=== PATIENT | female | born 1980 | race Hispanic/Latino ===

== ENCOUNTER 2023-07-12 14:11 | Emergency (ER) | payer MEDICAID, OTHER ==
[~2023-07-12] VITALS: Ht 160 cm; Wt 86.2 kg
[2023-07-12 16:30] LABS: CREATININE 0.6 mg/dL (0.5-1.0); POTASSIUM 3.4 mmol/L (3.5-5.1)
[2023-07-12 16:34] LABS: ALBUMIN 3.5 g/dL (3.5-5.0); BILIRUBIN,TOTAL 0.8 mg/dL (0.2-1.0); TOTAL PROTEIN, SERUM 7.3 g/dL (6.0-8.3)
[2023-07-12 18:28] LABS: HEMATOCRIT 44.5 % (36-48); MEAN CORPUSCULAR HEMOGLOBIN 29.8 pg (27.0-33.0); MEAN CORPUSCULAR HGB CONC 33.9 g/dL (32.0-36.0); MEAN CORPUSCULAR VOLUME 87.9 fL (79-99); PLATELET COUNT (AUTO) 240 K/uL (130-400); RED BLOOD CELL COUNT(AUTO) 5.06 MIL/uL (4.00-5.50); RED CELL DISTRIBUTION WIDTH 12.6 % (11.0-15.5); WHITE BLOOD COUNT (AUTO) 10.5 K/uL (4.8-10.8)
[2023-07-12] MEDS: 0.9%NACL 1000ML 1,000 ML IV ONE (19:03)
[2023-07-12] MEDS: POTASSIUM CHLORIDE 10MEQ/100ML 100 ML IV ONE (19:04)
[2023-07-12] MEDS: ONDANSETRON 4MG INJ IVP ONE (19:04)
[2023-07-12] MEDS: ONDANSETRON 4MG INJ ONE (19:20)
[2023-07-12] MEDS: MORPHINE 4 MG SYG IVP ONE (19:20)
[2023-07-12 19:39] LABS: BAND NEUTROPHILS % (MANUAL) 1 % (0-2); LYMPHOCYTES % (MANUAL) 18 % (22-44); MONOCYTES % (MANUAL) 8 % (2-9); SEGMENTED NEUTROPHILS % 73 % (40-70); TOTAL CELLS COUNTED 100
[2023-07-12 19:40] LABS: MAN.DIFF COMMENT-IMPRESSION MANUAL DIFFERENTIAL; PLATELET MORPHOLOGY COMMENT ADEQUATE
[2023-07-12 19:41] LABS: WBC MORPHOLOGY CONSISTENT
[2023-07-12] MEDS ORDERED: IOHEXOL-350 75 ML VIAL IV ONE ×2 (20:24→21:25)
[2023-07-12] MEDS: KCL 20 MEQ ERTAB PO ONE ×2 (21:23→21:24)
[2023-07-12 21:30] LABS: APPEARANCE,URINE CLEAR (CLEAR); BILIRUBIN,URINE NEGATIVE (NEGATIVE); COLOR,URINE YELLOW (YELLOW); GLUCOSE, URINE (UA) >=1000 mg/dL (NEGATIVE); HCG,QUALITATIVE URINE NEGATIVE (NEGATIVE); KETONES,URINE 20 mg/dL (NEGATIVE); LEUKOCYTE ESTERASE ,URINE 75 Leu/uL (NEGATIVE); NITRATE,URINE NEGATIVE (NEGATIVE); PH,URINE 5.5 (5.0-8.0); PROTEIN,URINE 20 mg/dL (NEGATIVE); UROBILINOGEN,URINE 0.2 mg/dL (0.2-1.0)
[2023-07-12 21:40] LABS: ADD UA MICROSCOPIC YES
[2023-07-12 21:47] LABS: BACTERIA,URINE RARE /HPF (None Seen); MUCUS,URINE FEW LPF (None Seen); SQUAMOUS EPITHELIAL CELL,UR FEW /HPF (0-2)
[2023-07-12] MEDS ORDERED: ONDA-243 PO (22:22)
[2023-07-12] MEDS ORDERED: CEPH500B PO (22:22)
[2023-07-12] MEDS: CEFTRIAXONE 1G VIAL IVPB ONE (22:50)
[2023-07-12 23:17] VITALS: BP 134/78; PULSE 72; RESP 15; O2SAT 98
== END 2023-07-12 23:19 | disposition home or self-care (01) ==
LOC: EDH 14:11
DX: E86.0 Dehydration (principal); B34.9 Viral infection, unspecified; R11.2 Nausea with vomiting, unspecified; N39.0 Urinary tract infection, site not specified; E11.65 Type 2 diabetes mellitus with hyperglycemia; E87.6 Hypokalemia
CPT/HCPCS: 99285; 74177; 96365; 96375; 71045; 96361; 82550; 84484; 80053; 84703; 83690; 85025; 87088; 81001; 81025; 36415; 93005; J7030; J0696 ×2; J2405; J2270; Q9967

== ENCOUNTER 2023-10-27 21:40 | Inpatient (IN) | payer OTHER ==
[~2023-10-27] VITALS: Ht 160 cm; Wt 84.5 kg
[~2023-10-27 21:40] MED LIST: CEPH500B PO; CLIN-141 PO; KETO10TA2 PO; ONDA-243 PO
[2023-10-27] MEDS: ONDANSETRON 4MG INJ IVP STA (22:48)
[2023-10-27] MEDS: CLINDAMYCIN IVPB 600MG/50ML 50 ML IV STA (22:48)
[2023-10-27] MEDS: morPHINE 2 MG SYG IVP STA (22:48)
[2023-10-27] MEDS: ketOROlac 15MG/ML VIAL (15MG/ML) IV STA (22:48)
[2023-10-27 22:51] LABS: BASOPHILS # (AUTO) 0.05 K/uL (0.00-0.20); BASOPHILS % (AUTO) 0.3 % (0.0-5.0); EOSINOPHILS # (AUTO) 0.11 K/uL (0.00-0.70); EOSINOPHILS % (AUTO) 0.8 % (0.0-8.0); HEMATOCRIT 39.2 % (36-48); IMMATURE GRANULOCYTE ABSOLUTE 0.05 K/uL (0-1); LYMPHOCYTES # (AUTO) 3.1 K/uL (1.0-4.8); LYMPHOCYTES % (AUTO) 21.1 % (21.0-51.0); MEAN CORPUSCULAR HEMOGLOBIN 30.4 pg (27.0-33.0); MEAN CORPUSCULAR HGB CONC 34.4 g/dL (32.0-36.0); MEAN CORPUSCULAR VOLUME 88.3 fL (79-99); MONOCYTES # (AUTO) 1.1 K/uL (0.1-1.0); MONOCYTES % (AUTO) 7.4 % (3.0-13.0); NEUTROPHILS # (AUTO) 10.2 K/uL (1.8-7.7); NEUTROPHILS % (AUTO) 70.1 % (40.0-77.0); PLATELET COUNT (AUTO) 261 K/uL (130-400); RED BLOOD CELL COUNT(AUTO) 4.44 MIL/uL (4.00-5.50); RED CELL DISTRIBUTION WIDTH 11.9 % (11.0-15.5); WHITE BLOOD COUNT (AUTO) 14.6 K/uL (4.8-10.8)
[2023-10-27 23:05] LABS: CREATININE 0.7 mg/dL (0.5-1.0); POTASSIUM 3.7 mmol/L (3.5-5.1)
[2023-10-27] MEDS: 0.9%NACL 1000ML 1,000 ML IV SCH ×2 (23:59)
[2023-10-28] VITALS (7 sets, daily range): BP systolic 101–118; BP diastolic 55–70; PULSE 72–78; RESP 18–20; TEMP 98–98.5; O2SAT 98
[2023-10-28] MEDS: INSULIN humuLIN R 100 UNIT/ML 3ML IV STA (00:02)
[2023-10-28] MEDS ORDERED: IOHEXOL 350 MG/ML 100ML INFUS..BTL IV ONE (00:15)
[2023-10-28] MEDS: LIDOCAINE HCL 1% 20 ML VIAL INJ SCH (01:19)
[2023-10-28] MEDS ORDERED: ONDANSETRON 4MG INJ IVP PRN (02:30)
[2023-10-28] MEDS: LACTATED RINGERS 1000ML 1,000 ML IV SCH (02:31)
[2023-10-28] MEDS: VANCOMYCIN 1G/250ML KIT 250 ML IV SCH ×2 (02:31→16:08)
[2023-10-28] MEDS: ceFEPime HCL 2 GM VIAL IVPB SCH (05:40)
[2023-10-28] MEDS: INSULIN humuLIN R 100 UNIT/ML 3ML SQ SCH (06:55)
[2023-10-28 07:14] LABS: HEMOGLOBIN A1C 12.4 % (4.0-6.0)
[2023-10-28] MEDS ORDERED: VANCOMYCIN PROTOCOL PER PHARMACY IV SCH (15:30)
[2023-10-28] MEDS: ALPRAZolam 0.25 MG TABLET PO PRN (16:07)
[2023-10-28] MEDS: INSULIN GLARgine 100 UNITS/ML 10 ML VIAL SQ SCH (20:58)
[2023-10-29] VITALS (10 sets, daily range): BP systolic 98–146; BP diastolic 59–93; PULSE 66–78; RESP 17–20; TEMP 97.7–98.5; O2SAT 99–100
[2023-10-29 09:21] LABS: BASOPHILS # (AUTO) 0.03 K/uL (0.00-0.20); BASOPHILS % (AUTO) 0.4 % (0.0-5.0); EOSINOPHILS # (AUTO) 0.07 K/uL (0.00-0.70); EOSINOPHILS % (AUTO) 0.8 % (0.0-8.0); HEMATOCRIT 37.9 % (36-48); IMMATURE GRANULOCYTE ABSOLUTE 0.03 K/uL (0-1); LYMPHOCYTES # (AUTO) 2.3 K/uL (1.0-4.8); LYMPHOCYTES % (AUTO) 26.6 % (21.0-51.0); MEAN CORPUSCULAR HEMOGLOBIN 29.5 pg (27.0-33.0); MEAN CORPUSCULAR HGB CONC 33.2 g/dL (32.0-36.0); MEAN CORPUSCULAR VOLUME 88.8 fL (79-99); MONOCYTES # (AUTO) 0.7 K/uL (0.1-1.0); MONOCYTES % (AUTO) 7.9 % (3.0-13.0); NEUTROPHILS # (AUTO) 5.4 K/uL (1.8-7.7); NEUTROPHILS % (AUTO) 63.9 % (40.0-77.0); PLATELET COUNT (AUTO) 239 K/uL (130-400); RED BLOOD CELL COUNT(AUTO) 4.27 MIL/uL (4.00-5.50); WHITE BLOOD COUNT (AUTO) 8.5 K/uL (4.8-10.8)
[2023-10-29 10:52] LABS: CREATININE 0.5 mg/dL (0.5-1.0); POTASSIUM 3.5 mmol/L (3.5-5.1)
[2023-10-29] MEDS: VANCOMYCIN 1.75 GM/250 ML BAG 250 ML IV ONE (16:07)
[2023-10-29] MEDS: acetaMINOPHEN 325 MG TAB PO PRN (20:34)
[2023-10-29] MEDS: VANCOMYCIN 1G/250ML KIT 250 ML IV SCH (23:28)
[2023-10-30] VITALS (27 sets, daily range): BP systolic 100–153; BP diastolic 49–86; PULSE 60–98; RESP 13–19; TEMP 97.5–98.7; O2SAT 100
[2023-10-30 05:20] LABS: HEMATOCRIT 36.4 % (36-48); MEAN CORPUSCULAR HEMOGLOBIN 29.5 pg (27.0-33.0); MEAN CORPUSCULAR HGB CONC 33.5 g/dL (32.0-36.0); MEAN CORPUSCULAR VOLUME 87.9 fL (79-99); RED BLOOD CELL COUNT(AUTO) 4.14 MIL/uL (4.00-5.50); RED CELL DISTRIBUTION WIDTH 11.9 % (11.0-15.5); WHITE BLOOD COUNT (AUTO) 8.5 K/uL (4.8-10.8)
[2023-10-30 05:33] LABS: CREATININE 0.7 mg/dL (0.5-1.0); MAGNESIUM 1.5 mg/dL (1.80-2.40); POTASSIUM 3.5 mmol/L (3.5-5.1)
[2023-10-30] MEDS: INSULIN humuLIN R 100 UNIT/ML 3ML SQ SCH ×3 (05:47→07:30)
[2023-10-30] MEDS: INSULIN GLARgine 100 UNITS/ML 10 ML VIAL SQ SCH (09:10)
[2023-10-30] MEDS: fluCONazole 100 MG TAB PO SCH (12:17)
[2023-10-30] MEDS: 0.9%NACL 1000ML 1,000 ML IV ONE (15:00)
[2023-10-30] MEDS: MAGNESIUM 2GM PREMIX 50ML 50 ML IV STA (15:07)
[2023-10-30] MEDS ORDERED: LIDOCAINE PF 100MG/5ML (2%) SYRINGE 5ML ONE (15:23)
[2023-10-30] MEDS ORDERED: FENTanyl CITRate PF 50 MCG/1 ML 2ML VIAL ONE ×2 (15:24→19:34)
[2023-10-30] MEDS ORDERED: proPOFol 10 MG/ML 20ML VIAL IV ONE (15:24)
[2023-10-30] MEDS ORDERED: MIDAZOLAM HCL 1 MG/ML 2ML VIAL ONE (15:24)
[2023-10-30] MEDS ORDERED: rocuRONium bROMide 10MG/1ML 5ML VL ONE (15:24)
[2023-10-30] MEDS ORDERED: PHENYLEPHRINE HCL 10 MG/ML 1ML VIAL IV ONE (15:26)
[2023-10-30] MEDS ORDERED: GLYCOPYRROLATE 0.2 MG/ML 5 ML VIAL ONE (15:26)
[2023-10-30] MEDS ORDERED: NEOSTIGMINE METHYLSULFATE 1MG/ML IV ONE (15:26)
[2023-10-30] MEDS ORDERED: dexaMETHasone SOD PHOSPHATE 4 MG/ML 1ML VIAL ONE (15:26)
[2023-10-30] MEDS ORDERED: ketOROlac 30MG VIAL (30MG/ML) ONE (15:27)
[2023-10-30] MEDS ORDERED: ONDANSETRON 4MG INJ ONE (15:27)
[2023-10-30] MEDS: VANCOMYCIN 1G/250ML KIT 250 ML IV ONE (17:13)
[2023-10-30] MEDS: MEPERIDINE-PF 25 MG/ML SYG ONE (20:29)
[2023-10-31] VITALS (11 sets, daily range): BP systolic 109–141; BP diastolic 55–97; PULSE 71–87; RESP 16–21; TEMP 97.6–98.3; O2SAT 99
[2023-10-31] MEDS: morPHINE 2 MG SYG IVP PRN (01:10)
[2023-10-31 06:19] LABS: HEMATOCRIT 37.8 % (36-48); MEAN CORPUSCULAR HGB CONC 33.9 g/dL (32.0-36.0); MEAN CORPUSCULAR VOLUME 88.5 fL (79-99); RED BLOOD CELL COUNT(AUTO) 4.27 MIL/uL (4.00-5.50); RED CELL DISTRIBUTION WIDTH 11.9 % (11.0-15.5); WHITE BLOOD COUNT (AUTO) 8.6 K/uL (4.8-10.8)
[2023-10-31 06:35] LABS: CREATININE 0.8 mg/dL (0.5-1.0); POTASSIUM 4.2 mmol/L (3.5-5.1)
[2023-10-31] MEDS: HYDROcodone/acetaMINOPHEN 7.5/325 MG TAB PO PRN (12:24)
[2023-11-01] VITALS: BP 132/80; PULSE 75; RESP 17; TEMP 98
[2023-11-01 04:00] VITALS: BP 102/71; PULSE 66; RESP 17; TEMP 98.2
[2023-11-01] MEDS: INSULIN humuLIN R 100 UNIT/ML 3ML SQ SCH (06:52)
[2023-11-01 07:59] VITALS: BP 107/66; PULSE 67; RESP 16; TEMP 98.2
[2023-11-01] MEDS: INSULIN GLARgine 100 UNITS/ML 10 ML VIAL SQ SCH (08:55)
[2023-11-01 09:00] VITALS: O2SAT 98
[2023-11-01 11:17] VITALS: BP 114/75; PULSE 86; RESP 16; TEMP 98.2
[2023-11-01] MEDS: LACTULOSE 20 GM/30 ML UDCUP PO ONE (13:41)
[2023-11-01 14:16] VITALS: O2SAT 99
[2023-11-01] MEDS ORDERED: INSU10VI3 SQ (16:10)
== END 2023-11-01 16:50 | disposition home or self-care (01) | DRG 603 ==
LOC: EDH 21:40 → EDHIP 10-28 02:12 → 3CH 10-28 03:40
PROVIDERS: ADMIT Hospitalist; ATTEND Hospitalist
PROC: 0J9B0ZZ Drainage of Perineum Subcutaneous Tissue and Fascia, Open Approach (ICD-10-PCS; principal; 2023-10-30 18:55)
DX: L02.215 Cutaneous abscess of perineum (principal); E87.20 Acidosis, unspecified; L02.416 Cutaneous abscess of left lower limb; L02.31 Cutaneous abscess of buttock; L02.214 Cutaneous abscess of groin; I10 Essential (primary) hypertension; E11.65 Type 2 diabetes mellitus with hyperglycemia; E66.9 Obesity, unspecified; D72.829 Elevated white blood cell count, unspecified; L72.3 Sebaceous cyst; Z72.0 Tobacco use; Z79.4 Long term (current) use of insulin; Z91.148 Patient's other noncompliance with medication regimen for other reason; Z91.199 Patient's noncompliance with other medical treatment and regimen due to unspecified reason; Z83.3 Family history of diabetes mellitus
CPT/HCPCS: 36415; 74177; 76882; 80048; 80202; 82948; 83036; 83605; 83735; 84145; 84703; 85025; 85027; 86140; 87040; 87070; 87076; 87205; G0378; J0692; J1100; J1815; J1885; J2001; J2175; J2250; J2270; J2371; J2405; J2704; J2710; J3010; J3370; J3475; J3490; J7030; J7120; Q9967; A4215; A4221; A4222; A4223; A4600

== ENCOUNTER 2023-11-15 12:50 | Emergency (ER) | payer OTHER ==
[~2023-11-15] VITALS: Ht 160 cm; Wt 83.0 kg
[~2023-11-15 12:50] MED LIST changes: -CEPH500B PO; -CLIN-141 PO; +INSU10VI3 SQ; -KETO10TA2 PO; -ONDA-243 PO
[2023-11-15] MEDS: ketOROlac 60 MG VIAL (30MG/ML) IM ONE (14:38)
[2023-11-15] MEDS: HYDROcod/acetaMINOPHEN 7.5/325 MG 15 ML UDCUP PO PRN (14:39)
[2023-11-15 14:47] VITALS: BP 114/67; PULSE 78; RESP 18; TEMP 98.1; O2SAT 99
== END 2023-11-15 15:07 | disposition home or self-care (01) ==
LOC: EDH 12:50
DX: Z48.89 Encounter for other specified surgical aftercare (principal)
CPT/HCPCS: 99283; 96372; J1885

== ENCOUNTER 2024-07-12 23:33 | Emergency (ER) | payer OTHER ==
[~2024-07-12] VITALS: Ht 160 cm; Wt 93.0 kg
[2024-07-13] MEDS ORDERED: ketOROlac 60 MG VIAL (30MG/ML) IM ONE
[2024-07-13 00:05] LABS: RAPID GROUP A STREP negative (NEGATIVE)
[2024-07-13 00:12] LABS: SARS-CoV-2, RNA, NAAT NEGATIVE SARS CoV-2 (NEGATIVE)
[2024-07-13 00:15] LABS: INFLUENZA TYPE A Negative For Type A (NEGATIVE); INFLUENZA TYPE B Negative For Type B (NEGATIVE)
[2024-07-13 00:36] LABS: CREATININE 0.6 mg/dL (0.5-1.0); POTASSIUM 3.8 mmol/L (3.5-5.1)
[2024-07-13 00:45] LABS: BASOPHILS # (AUTO) 0.04 K/uL (0.00-0.20); BASOPHILS % (AUTO) 0.4 % (0.0-5.0); EOSINOPHILS # (AUTO) 0.19 K/uL (0.00-0.70); EOSINOPHILS % (AUTO) 1.9 % (0.0-8.0); IMMATURE GRANULOCYTE ABSOLUTE 0.02 K/uL (0-1); LYMPHOCYTES # (AUTO) 3.2 K/uL (1.0-4.8); LYMPHOCYTES % (AUTO) 32.8 % (21.0-51.0); MEAN CORPUSCULAR HEMOGLOBIN 29.4 pg (27.0-33.0); MEAN CORPUSCULAR HGB CONC 33.7 g/dL (32.0-36.0); MEAN CORPUSCULAR VOLUME 87.2 fL (79-99); MONOCYTES # (AUTO) 0.8 K/uL (0.1-1.0); MONOCYTES % (AUTO) 8.4 % (3.0-13.0); NEUTROPHILS # (AUTO) 5.5 K/uL (1.8-7.7); NEUTROPHILS % (AUTO) 56.3 % (40.0-77.0); PLATELET COUNT (AUTO) 297 K/uL (130-400); RED BLOOD CELL COUNT(AUTO) 4.36 MIL/uL (4.00-5.50); RED CELL DISTRIBUTION WIDTH 12.9 % (11.0-15.5); WHITE BLOOD COUNT (AUTO) 9.8 K/uL (4.8-10.8)
[2024-07-13] MEDS ORDERED: INSULIN humuLIN R 100 UNIT/ML 3ML SQ ONE (01:30)
--- NOTE | 2024-07-13 01:33 | ERN ---
ED Note History of Present Illness Stated Complaint: C/O COUGH,CONGESTION X 2 WKS, CP 3 HRS [employer] Chief Complaint: Cough Time Seen by MD: 23:38 Time Seen by Midlevel: 23:38 Dictation: The patient is a 43-year-old female with a history of diabetes who presents to the emergency department with complaints of chest pain onset5 hours ago. Patient reports pain to be mid center and sharp. Reports pain to be intermediate in nature lasting about 30 seconds. Patient reports she has been dealing with a cough that is dry, headaches for the past two weeks. Denies any fevers. Allergies: Coded Allergies: No Known Drug Allergies (Unverified Allergy, Unknown, 07/12/23) Home Meds Active Scripts Insuln Asp Prt/Insulin Aspart (Novolog Mix 70-30 Vial) 100 Unit/Ml (70-30) Vial, 50 UNITS SQ DAILY, #1 VIAL 1 Refill Prov:ROSANA MELARA AGPCNP 11/01/23 Past Medical History Past Medical History: Anxiety, Diabetes-Type II, Hypertension Surgical History: Surgical History Other: RT FOOT Social History: Lives with family History: Not Applicable LMP: July 12, 2024 RN Note Reviewed/Agreed w/PFSH: Yes Review of System Dictation Constitutional: Negative for fever,chills, and weight loss Eyes: Negative for injury, pain,redness, and discharge ENT: Negative for injury,pain or swelling Cardiovascular: Negative for palpitations, and edema positive for chest pain Respiratory: Negative for shortness of breath, and wheezing, positive for cough Abdomen/GI: Negative for abdominal pain, nausea, vomiting, diarrhea, and constipation Back: Negative for injury and pain : Negative for injury, bleeding and discharge MS/Extremity: Negative for injury and deformity Skin: Negative for rash, and discoloration Neuro: Negative for headache, weakness, numbness, tingling, and seizure Psych: Negative for suicide ideation, homicidal ideation, and hallucinations Initial Vital Sign VS Vital Signs Date Time Temp Pulse Resp B/P (MAP) Pulse Ox O2 Delivery O2 Flow Rate FiO2 07/12/24 23:37 98.2 86 20 153/101 99 Room Air Physical Exam Dictation Vital Signs reviewed General Appearance: Alert, oriented x 3, no acute distress, well developed, nourished. Head and Face: non-traumatic. Eyes: PERRL, pink conjunctivas, eyelid no trauma, anterior chamber with arcus senilis. Ears: Pinnas intact and no signs of trauma or erythema ear canals clear and no discharge TM no erythema Nose: No discharge, no bleeding. Oropharynx: Mouth normal, tongue pink. pharynx clear,no erythema, tonsils no exudates, no abscesses noted, mucous membrane moist Neck: Supple, non-tender, no thyromegaly, no masses, no JVD, no bruits Breast:Deferred Chest:tenderness, no crepitus, no paradoxical movement, no retractions Lungs:Clear, well-ventilated, symmetric, no rales, no wheezing, no rhonchi, no stridor, good breath sounds bilaterally Heart: Regular rate, regular rhythm, no murmur, no gallops Vascular: no peripheral edema, Abdomen: Soft, positive bowel sounds, nondistended, no guarding, nontender, no rebound, no masses no hepatomegaly, no splenomegaly, no Fitzgerald's sign, no hernias. Rectal: Deferred Genital: Deferred Neurological: Normal speech, motor function intact, sensory function intact Musculoskeletal: Neck nontender, full range of motion, back nontender, full range of motion, Extremities: nontender, full range of motion Skin: Color pink, dry, no turgor, no rash, no lacerations, no abrasions, no contusions. Lymphatic: Deferred Results (Laboratory/Radiology) Laboratory/Radiology Laboratory Tests Test 07/12/24 23:41 07/13/24 00:19 Influenza Type A Antigen Negative For Type A Influenza Type B Antigen Negative For Type B SARS-CoV-2, RNA, NAAT NEGATIVE SARS CoV-2 Group A Streptococcus Rapid negative (NEGATIVE) White Blood Count 9.8 K/uL (4.8-10.8) Red Blood Count 4.36 MIL/uL (4.00-5.50) Hemoglobin 12.8 g/dL (12.0-16.0) Hematocrit 38.0 % (36-48) Mean Corpuscular Volume 87.2 fL (79-99) Mean Corpuscular Hemoglobin 29.4 pg (27.0-33.0) Mean Corpuscular Hemoglobin Concent 33.7 g/dL (32.0-36.0) Red Cell Distribution Width 12.9 % (11.0-15.5) Platelet Count 297 K/uL (130-400) Mean Platelet Volume 10.9 fL (7.5-10.5) H Immature Granulocyte % (Auto) 0.2 % (0-1) Neutrophils (%) (Auto) 56.3 % (40.0-77.0) Lymphocytes (%) (Auto) 32.8 % (21.0-51.0) Monocytes (%) (Auto) 8.4 % (3.0-13.0) Eosinophils (%) (Auto) 1.9 % (0.0-8.0) Basophils (%) (Auto) 0.4 % (0.0-5.0) Neutrophils # (Auto) 5.5 K/uL (1.8-7.7) Lymphocytes # (Auto) 3.2 K/uL (1.0-4.8) Monocytes # (Auto) 0.8 K/uL (0.1-1.0) Eosinophils # (Auto) 0.19 K/uL (0.00-0.70) Basophils # (Auto) 0.04 K/uL (0.00-0.20) Absolute Immature Granulocyte (auto 0.02 K/uL (0-1) Nucleated Red Blood Cells 0.0 % (0.0-0.19) Sodium Level 137 mmol/L (136-145) Potassium Level 3.8 mmol/L (3.5-5.1) Chloride Level 102 mmol/L (101-111) Carbon Dioxide Level 27 mmol/L (21-32) Blood Urea Nitrogen 14 mg/dL (7-18) Creatinine 0.6 mg/dL (0.5-1.0) Glomerular Filtration Rate Calc 116 mL/min (>90) Random Glucose 338 mg/dL (70-105) H Total Calcium 8.6 mg/dL (8.5-10.1) Troponin I High Sensitivity < 4 ng/L (4-50) L Serum Test, Qualitative NEGATIVE (NEGATIVE) Labs Reviewed?: Yes EKG: (+) rhythm (Sinus rhythm) EKG Comment: Date:07/12/2024 Time:2335 Ventricular rate:83 UT interval:133 QRS duration:89 QT/QTc:374 EKG interpretation: Sinus rhythm Reviewed by ED Attending no STEMI ED Course ED Course Orders Procedure Category Date Status Time Covid Rna Naat LAB 07/12/24 Complete 23:36 Influenza Type A & B, LAB 07/12/24 Complete Rapid 23:36 Rapid (Group A Strep) LAB 07/12/24 Complete 23:36 12 Lead Ekg Tracing- EKG 07/12/24 Logged Technical 23:36 Troponin I High LAB 07/13/24 Complete Sensitivity 00:00 Cbc With Differential LAB 07/13/24 Complete 00:00 Chest 1vw RAD 07/13/24 Taken 00:00 Basic Metabolic Panel LAB 07/13/24 Complete 00:00 Ketorolac 60mg/2ml PHA 07/13/24 Complete (Toradol 60mg/2ml) 00:00 Testing, LAB 07/13/24 Complete Serum Hcg 00:00 Insulin Regular, PHA 07/13/24 Complete Human 3ml (Humulin R 01:30 Current Medications Medications (Trade) Dose Ordered Sig/Annie Route PRN Reason Start Time Stop Time Status Last Admin Dose Admin Insulin Human Regular (humuLIN R 100 UNIT/ML 3ML) 5 unit ONCE ONCE SQ 07/13/24 01:30 07/13/24 01:31 DC Ketorolac Tromethamine (toRADol 60MG/ 2ML) 60 mg ONCE ONCE IM 07/13/24 00:00 07/13/24 00:06 DC Vital Signs Date Time Temp Pulse Resp B/P (MAP) Pulse Ox O2 Delivery O2 Flow Rate FiO2 07/12/24 23:37 98.2 86 20 153/101 99 Room Air HEART Score Response (Comments) Value History: Low suspicion (0) 0 EKG: Normal 0 Age: < 45yrs (0) 0 Initial Troponin: Normal limit (0) 0 Total 0 Medical Decision Making MDM The patient is a 43-year-old female with a history of diabetes who presents to the emergency department with complaints of chest pain onset5 hours ago. Patient reports pain to be mid center and sharp. Reports pain to be int ermediate in nature lasting about 30 seconds. Patient reports she has been dealing with a cough that is dry, headaches for the past two weeks. Denies any fevers. CBC showed no leukocytosis, no anemia, chemistry showed mild hyperglycemia, negative troponin, serology negative. Chest x-ray showed no acute pathology. Patient at this time refuses her insulin. Reports she took her own insulin just now. Labs and imaging discussed with the patient who agrees to be discharged and follow up with PCP. On physical exam patient is in no acute distress, stable vital signs. Pain is reproducible with palpation. Probably related to the cough. Patient with a low risk heart score. Differential diagnosis: Pneumonia, pneumothorax, upper respiratory infection, ACS, bronchitis, costochondritis Need for hospitalization: Patient does not meet criteria for hospitalization. There are no social concerns with this patient. DX & DISP Disposition: Discharge Departure Impression: Primary Impression: Costochondritis Additional Impression: Uncontrolled diabetes mellitus with hyperglycemia Condition: Stable Additional Instructions: Please follow up with the primary doctor in 1-2 days. If symptoms worsen please return to ER. FOLLOW-UP WITH PRIMARY CARE PROVIDER IN 1 TO 2 DAYS. TAKE MEDICATIONS DIRECTED HERE IN THE EMERGENCY ROOM. OKAY TO CONTINUE HOME MEDICATIONS UNLESS OTHERWISE DISCUSSED DURING YOUR VISIT IN THE EMERGENCY ROOM TODAY. RETURN TO YOUR NEAREST EMERGENCY ROOM IF SYMPTOMS WORSEN OR IF THERE IS NO IMPROVEMENT. CALL 911 IF YOU NEED IMMEDIATE ASSISTANCE. TAKE TYLENOL OR MOTRIN OVER-THE- COUNTER NEEDED AND IF NO CONTRAINDICATIONS ARE PRESENT. INCREASE ORAL HYDRATION. A WOUND CULTURE OR URINE CULTURE WAS ORDERED HERE IN THE EMERGENCY ROOM DEPARTMENT PLEASE FOLLOW-UP WITH PRIMARY CARE PROVIDER AND ADVISE THEM TO GET REPEAT PORTS FROM OUR FACILITY. IF YOU HAD ANY ALCIRA WRAP/SPLINTS THAT WERE APPLIED HERE, PLEASE DO NOT REMOVE THEM UNTIL YOU SEE YOUR PRIMARY CARE OR SPECIALTY. Referrals: SELF,REFERRAL (PCP) Time of Disposition: 02:13 I have reviewed the case, and I agree with, Diagnosis and Plan VANESSA MOSS July 13, 2024 01:32
--- NOTE | 2024-07-13 02:09 | NUR ---
CALLED FOR PT IN LOBBY TO MOVE TO ROOM 20; PT NOT FOUND IN LOBBY.
[2024-07-13 02:29] VITALS: BP 148/92; PULSE 81; RESP 18; TEMP 98; O2SAT 98
--- NOTE | 2024-07-13 06:50 | EKG ---
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
--- NOTE | 2024-07-13 08:28 | HMCIMG ---
CHEST 1VW HISTORY: Chest pain COMPARISON: 07/12/2023 FINDINGS: A frontal projection of the chest was obtained. No acute pulmonary infiltrates is seen. The heart is borderline enlarged. Prominent interstitial markings are seen. No evidence of aortic calcification is seen. IMPRESSION: 1. No acute pulmonary infiltrate is seen.
== END 2024-07-13 02:38 | disposition home or self-care (01) ==
LOC: EDH 23:33
DX: M94.0 Chondrocostal junction syndrome [Tietze] (principal); E11.65 Type 2 diabetes mellitus with hyperglycemia; I10 Essential (primary) hypertension; Z79.4 Long term (current) use of insulin; Z20.822 Contact with and (suspected) exposure to COVID-19
CPT/HCPCS: 36415; 71045; 80048; 84484; 84703; 85025; 87635; 87804; 87880; 93005; 99285

== ENCOUNTER 2024-07-29 23:15 | Emergency (ER) | payer OTHER ==
[~2024-07-29] VITALS: Ht 160 cm; Wt 94.8 kg
--- NOTE | 2024-07-29 23:42 | HMCIMG ---
ANKLE 2VWS LT HISTORY: Injury and pain COMPARISON: None TECHNIQUE: 2 images of the left ankle were obtained. FINDINGS: There is no acute displaced fracture or dislocation. There is soft tissue swelling. Tiny calcaneal spur is seen. Degenerative changes are seen. IMPRESSION: 1. Findings as described above.
[2024-07-30] MEDS ORDERED: ketOROlac 30MG VIAL (30MG/ML) IVP ONE
[2024-07-30] MEDS: HYDROcodone/APAP 5/325 1 TAB TABLET PO ONE (00:05)
[2024-07-30] MEDS: ketOROlac 30MG VIAL (30MG/ML) IM ONE (00:08)
[2024-07-30] MEDS ORDERED: NAPR-1196 PO (00:36)
--- NOTE | 2024-07-30 00:39 | ERN ---
ED Note History of Present Illness Stated Complaint: ANKLE INJURY Chief Complaint: Ankle Problem Time Seen by MD: 23:21 Dictation: Ms. Lindo is a 43-year-old female with history of obesity, diabetes, hypertension, and anxiety who presented to the emergency department this evening for evaluation of ankle pain. She states that four days ago she fell and twisted her left ankle. She states now she has throbbing pain to the foot and ankle with edema. There is no obvious deformity or bruising. She has pain with weight-bearing. She denies additional injury or concerns. Allergies: Coded Allergies: No Known Drug Allergies (Unverified Allergy, Unknown, 07/12/23) Home Meds Active Scripts Insuln Asp Prt/Insulin Aspart (Novolog Mix 70-30 Vial) 100 Unit/Ml (70-30) Vial, 50 UNITS SQ DAILY, #1 VIAL 1 Refill Prov:ROSANA MELARA Beth AGPCEDWIN 11/01/23 Past Medical History Past Medical History: Anxiety, Diabetes-Type II, Hypertension Surgical History: Surgical History Other: RT FOOT PSYCH History: no pertinent psych hx Social History: Lives with family History: Not Applicable RN Note Reviewed/Agreed w/PFSH: Yes Review of System Dictation REVIEW OF SYSTEMS: CONSTITUTIONAL: Patient denies fevers, chills, sweats and weight changes. EYES: Patient denies any visual symptoms. EARS, NOSE, AND THROAT: No difficulties with hearing. No symptoms of rhinitis or sore throat. CARDIOVASCULAR: Patient denies chest pains, palpitations, orthopnea and paroxysmal nocturnal dyspnea. RESPIRATORY: No dyspnea on exertion, no wheezing or cough. GI: No nausea, vomiting, diarrhea, constipation, abdominal pain, hematochezia or melena. : No urinary hesitancy or dribbling. No nocturia or urinary frequency. No abnormal urethral discharge. MUSCULOSKELETAL: Pain to left ankle with swelling. NEUROLOGIC: No chronic headaches, no seizures. Patient denies numbness, tingling or weakness. PSYCHIATRIC: Patient denies problems with mood disturbance. No problems with anxiety. ENDOCRINE: No excessive urination or excessive thirst. DERMATOLOGIC: Patient denies any rashes or skin changes. Initial Vital Sign VS Vital Signs Date Time Temp Pulse Resp B/P (MAP) Pulse Ox O2 Delivery O2 Flow Rate FiO2 07/29/24 23:16 98.4 95 20 145/109 100 Room Air Physical Exam Dictation Vital signs: Reviewed. Afebrile Constitutional: Uncomfortable Head/Face: Normocephalic, atraumatic. Eyes: Periorbital areas with no swelling, redness, or edema. Lids and lashes are normal. Conjunctival injection is absent. Sclera anicteric. Pupils equal, round, reactive to light. ENT: Pinnas intact and no signs of trauma or erythema. Ear canals clear and no discharge. TMs no erythema. No nasal discharge or bleeding noted. Oropharynx with no exudate, redness, swelling, masses, exudates, or evidence of obstruction. Uvula midline. Mucous membranes moist. Neck: Trachea midline, no masses palpated, and no cervical lymphadenopathy. No swelling. Supple, full range of motion. Chest/Axilla: No tenderness, no crepitus, no paradoxical movement, no retractions. Cardiovascular: Regular rate, regular rhythm, no murmur, no gallops. Symmetric pulses. No peripheral edema. Respiratory: Respirations even and unlabored. Lung sounds clear; no wheezes, rales or rhonchi. Gastrointestinal: Inspection is normal. No distention is appreciated. Bowel sounds are normal. No mass or organomegaly . There is no tenderness. No rebound. No rigidity. No voluntary or involuntary guarding. No Fitzgerald's sign. Neurological: Normal speech, gross motor function intact, gross sensory function intact. No focal weakness/Paresthesia. Musculoskeletal/Extremities: Range of motion is intact to the left knee and ankle. She does have pain with movement of the left ankle. There is swelling to the left ankle. No obvious deformity/dislocation. No crepitus. She has good color, warmth, movement, and sensation to the left toes. Capillary refill is brisk. Pedal pulses strong and palpable bilaterally. Integumentary: Intact. Skin is normal color, warm and dry. Cap refill less than 3 seconds. Results (Laboratory/Radiology) X-RAY Comment: PATIENT: WALTER LINDO MR#: [id number] : 1980 SEX: F AGE: 43 LOCATION: ED ORDER [id number] STATUS: PRE ER REPORT#: [id number] SERVICE 27 REASON: INJURY, PAIN ORDERING PHYSICIAN: LEN ALLRED NP PROCEDURE: [id number] - ANKLE 2VWS LT ANKLE 2VWS LT HISTORY: Injury and pain COMPARISON: None TECHNIQUE: 2 images of the left ankle were obtained. FINDINGS: There is no acute displaced fracture or dislocation. There is soft tissue swelling. Tiny calcaneal spur is seen. Degenerative changes are seen. IMPRESSION: 1. Findings as described above. DICTATED BY: IBIS OLIVAS MD DATE: 07/29/242338 ELECTRONICALLY SIGNED BY: IBIS OLIVAS MD DATE: 07/29/24 234 ED Course ED Course Orders Procedure Category Date Status Time Ankle 2vws Lt RAD 07/29/24 Resulted 23:28 Ketorolac PHA 07/30/24 Complete Tromethamine 30mg/Ml 00:00 Crutches NAYELI 07/29/24 In Process 23:48 Hydrocodone/Apap PHA 07/30/24 Complete 5/325 (Baxter 5/325mg) 00:00 Current Medications Medications (Trade) Dose Ordered Sig/Annie Route PRN Reason Start Time Stop Time Status Last Admin Dose Admin Acetaminophen/ Hydrocodone Bitart (NORco 5/325MG) 1 tab ONCE ONCE PO 07/30/24 00:00 07/30/24 00:01 DC 07/30/24 00:05 Ketorolac Tromethamine (toRADol) 30 mg ONCE ONCE IM 07/30/24 00:00 07/30/24 00:01 DC 07/30/24 00:08 Vital Signs Date Time Temp Pulse Resp B/P (MAP) Pulse Ox O2 Delivery O2 Flow Rate FiO2 07/29/24 23:16 98.4 95 20 145/109 100 Room Air Uneventful ED course. Vital signs are stable. X-ray of the left ankle negative for fracture or dislocation. Ice pack was applied as well as Steve wrap. Patient instructed on use of crutches. She received doses Toradol and Baxter and states pain has decreased. Findings were discussed with patient and her family and all questions were answered. Medical Decision Making MDM MDM: Differential diagnosis: ankle fracture, ankle dislocation, sprain/strain, contusion Rationale: Tests considered and ordered secondary to shared decision making incl ude: X-ray Previous outside records reviewed: Old ER visits. Risk of complication and/or morbidity or mortality of patient management: None Medications-Per medication reconciliation Need for hospitalization: Patient does not meet criteria for hospitalization. Need for emergency major/minor surgery: No There are no social concerns with this patient. Prescription drug management: Naproxen Prescriptions will include symptomatic care Patient's prior external medical records from other ER visits were reviewed by me as indicated. Prior testing and results from previous visits were reviewed. Prior tests were taken into account with medical decision making and resource utilization, independent historian/historians were used to obtain complete medical history. I independently interpreted the test that were performed, results were reviewed by me and considered findings on radiology if ordered. Medical management and examination interpretation discussions were had by me with other qualified healthcare professionals as indicated for the patient's care. DX & DISP Disposition: Discharge Departure Impression: Primary Impression: Left ankle sprain Condition: Stable Scripts Naproxen (Naproxen) 250 Mg Tablet 500 MG PO q12 hours as needed for pain, #14 TAB 0 Refills Prov: LEN ALLRED NP 07/30/24 Additional Instructions: Rest: Limit walking and standing. Use crutches. Avoid activities that cause pain or limping ICE: Apply ice packs for 15-20 minutes every 2-3 hours for the 1st 48-72 hours Compression: Use an Steve wrap to reduce swelling. Wrapped snugly but not too tight to avoid cutting off circulation Elevation: Raise your ankle above the level of the heart when sitting or lying down to reduce swelling. Take Tylenol or prescription naproxen as needed for pain/inflammation. Avoid sports or strenuous activity until your ankle feels stable and pain-free. Begin gentle [id number] exercises in a few days. Return to the ER a few have: Severe swelling or pain that worsens. Numbness, tingling, or cold toes. Inability to bear weight after several days. Follow up with your primary care provider in the next 3-5 days. Return to the emergency department for any worsening of symptoms or concerns. Referrals: SELF,REFERRAL (PCP) LEN ALLRED NP Jul 30, 2024 00:39
[2024-07-30 01:31] VITALS: BP 136/73; PULSE 82; RESP 18; TEMP 98.3; O2SAT 98
== END 2024-07-30 01:33 | disposition home or self-care (01) ==
LOC: EDH 23:15
DX: S93.402A Sprain of unspecified ligament of left ankle, initial encounter (principal); E11.9 Type 2 diabetes mellitus without complications; I10 Essential (primary) hypertension; F41.9 Anxiety disorder, unspecified; Z79.4 Long term (current) use of insulin; X50.1XXA Overexertion from prolonged static or awkward postures, initial encounter; Y93.89 Activity, other specified; Y92.89 Other specified places as the place of occurrence of the external cause; Y99.8 Other external cause status
CPT/HCPCS: 99283; 73600; 96372; J1885

== ENCOUNTER 2024-08-04 21:14 | Emergency (ER) | payer OTHER ==
[~2024-08-04] VITALS: Ht 160 cm; Wt 92.1 kg
[~2024-08-04 21:14] MED LIST changes: +NAPR-1196 PO
[2024-08-04 21:44] LABS: BASOPHILS # (AUTO) 0.06 K/uL (0.00-0.20); BASOPHILS % (AUTO) 0.4 % (0.0-5.0); EOSINOPHILS # (AUTO) 0.14 K/uL (0.00-0.70); EOSINOPHILS % (AUTO) 0.9 % (0.0-8.0); HEMATOCRIT 39.2 % (36-48); IMMATURE GRANULOCYTE ABSOLUTE 0.04 K/uL (0-1); LYMPHOCYTES # (AUTO) 3.6 K/uL (1.0-4.8); LYMPHOCYTES % (AUTO) 23.7 % (21.0-51.0); MEAN CORPUSCULAR HEMOGLOBIN 29.5 pg (27.0-33.0); MEAN CORPUSCULAR HGB CONC 34.2 g/dL (32.0-36.0); MEAN CORPUSCULAR VOLUME 86.3 fL (79-99); MONOCYTES % (AUTO) 6.7 % (3.0-13.0); NEUTROPHILS # (AUTO) 10.2 K/uL (1.8-7.7); PLATELET COUNT (AUTO) 280 K/uL (130-400); RED BLOOD CELL COUNT(AUTO) 4.54 MIL/uL (4.00-5.50); RED CELL DISTRIBUTION WIDTH 12.8 % (11.0-15.5)
[2024-08-04 21:52] LABS: CREATININE 0.8 mg/dL (0.5-1.0); POTASSIUM 3.7 mmol/L (3.5-5.1)
[2024-08-04] MEDS: metoCLOPRAmide 10 MG/2 ML VIAL IVP ONE (22:14)
[2024-08-04] MEDS: 0.9%NACL 1000ML 1,000 ML IV ONE (22:14)
[2024-08-04] MEDS: acetaMINOPHEN 500 MG TABLET PO ONE (22:14)
[2024-08-04 22:15] LABS: RAPID GROUP A STREP negative (NEGATIVE)
[2024-08-04 22:26] LABS: COVID19 (SARS ANTIGEN RAPID) PRESUMPTIVE NEGATIVE (NEGATIVE); INFLUENZA TYPE A Negative For Type A (NEGATIVE); INFLUENZA TYPE B Negative For Type B (NEGATIVE)
[2024-08-04 22:36] LABS: HCG,QUALITATIVE URINE NEGATIVE (NEGATIVE)
[2024-08-04 22:37] LABS: APPEARANCE,URINE CLEAR (CLEAR); BILIRUBIN,URINE NEGATIVE (NEGATIVE); GLUCOSE, URINE (UA) >=1000 mg/dL (NEGATIVE); KETONES,URINE NEGATIVE (NEGATIVE); LEUKOCYTE ESTERASE ,URINE NEGATIVE Leu/uL (NEGATIVE); NITRATE,URINE NEGATIVE (NEGATIVE); OCCULT BLOOD,URINE NEGATIVE (NEGATIVE); PROTEIN,URINE NEGATIVE (NEGATIVE); SQUAMOUS EPITHELIAL CELL,UR RARE /HPF (0-2); UROBILINOGEN,URINE 0.2 mg/dL (0.2-1.0)
[2024-08-04 22:41] LABS: COLOR,URINE Light-Yellow (YELLOW)
[2024-08-04] MEDS ORDERED: IOHEXOL-350 75 ML VIAL IV ONE (23:08)
[2024-08-04] MEDS ORDERED: IOHEXOL 350 MG/ML 100ML INFUS..BTL IV ONE (23:08)
--- NOTE | 2024-08-04 23:20 | NUR ---
PATIENT AT CT SCAN AT THIS TIME.
[2024-08-04 23:36] VITALS: BP 122/76; PULSE 78; RESP 18; TEMP 98.6; O2SAT 99
[2024-08-04 23:37] VITALS: TEMP 98.5
--- NOTE | 2024-08-04 23:38 | HMCIMG ---
CT NECK SOFT TISS W/CONTRAST HISTORY: Retropharyngeal abscess COMPARISON: None TECHNIQUE: Multiple sequential axial images of the soft tissue neck were obtained. Patient was given 75 cc of Omnipaque through intravenous route. FINDINGS: No CT evidence of drainable abscess is seen. Visualized portion of brain parenchyma within the posterior fossa is within normal limits. Parapharyngeal fat planes are preserved bilaterally. Parotid glands and submandibular glands are grossly within normal limits. There are normal size cervical lymph nodes. The airway is patent. Visualized portion of the lung apices are unremarkable. IMPRESSION: 1. No CT evidence of drainable abscess is seen CT was performed with one or more following dose reduction techniques: automated exposure control, adjustment of the mA and kv according to patient's size, or use of a iterative reconstruction technique.
[2024-08-05] MEDS ORDERED: AMOX500T2 PO (00:02)
--- NOTE | 2024-08-05 00:02 | ERN ---
General Chief Complaint: Sore Throat Stated Complaint: C/O SORE THROAT, COUGH, HEADACHE, DIZZINESS, BODYA Time Seen by MD: 21:16 Time Seen by Midlevel: 21:16 Source: patient History of Present Illness Initial Comments 43-year-old female who presents to the emergency department due to flu-like symptoms onset yesterday. Patient reports headache, chest pain with deep breathing, sore throat, body aches, nausea but denies any abdominal pain, vomiting or further associated symptoms. PMHx DM, anxiety Allergies: Coded Allergies: No Known Drug Allergies (Unverified Allergy, Unknown, 07/12/23) Home Meds Active Scripts Amoxicillin (Amoxicillin) 500 Mg Tablet, 1 TAB PO BID for 10 Days, #20 TAB 0 Refills Prov:ANDREY WELDON 08/05/24 Naproxen (Naproxen) 250 Mg Tablet, 500 MG PO q12 hours as needed for pain, #14 TAB 0 Refills Prov:LEN ALLRED NP 07/30/24 Insuln Asp Prt/Insulin Aspart (Novolog Mix 70-30 Vial) 100 Unit/Ml (70-30) Vial, 50 UNITS SQ DAILY, #1 VIAL 1 Refill Prov:ROSANA MELARA AGPCEDWIN 11/01/23 Past Medical History Past Medical History: Anxiety, Diabetes-Type II Past Surgical History: Surgical History Other: RT FOOT Social History Social History: Lives with family Female( History) History: Not Applicable LMP: Aug 13, 2024 ROS Dictation Constitutional: Positive for body aches Negative for fever,chills, and weight loss Eyes: Negative for injury, pain,redness, and discharge ENT: Positive sore throat Negative for injury,pain or swelling Cardiovascular: Negative for chest pain, palpitations, and edema Respiratory: Negative for shortness of breath, cough, and wheezing, Abdomen/GI: Positive nausea Negative for abdominal pain, nausea, vomiting, diarrhea, and constipation Back: Negative for injury and pain : Negative for painful urination, bleeding or discharge MS/Extremity: Negative for injury and deformity Skin: Negative for rash, and discoloration Neuro: Positive headache Negative for weakness, numbness, tingling, and seizure Psych: Negative for suicide ideation, homicidal ideation, and hallucinations Physical Exam Physical Exam Dictation General: awake, alert, no acute distress Head/Face: Normocephalic, atraumatic Eyes: PERRL, EOMI, normal conjunctiva, bilateral tonsillar erythema mild swelling. ENT: oral cavity clear, TMs clear, oral mucosa moist Neck: Supple, normal range of motion, submandibular lymphadenopathy Cardiovascular: RRR, normal S1/S2 Respiratory: CTAB, no respiratory distress, no rales or wheezes Abdomen: Soft, non-tender, non-distended, no guarding or rebound. Skin: Warm, dry, normal turgor, no rash MS/Extremity: Pulses equal, no cyanosis, neurovascular intact, FROM Neuro: COAx4, GCS 15, strength 5/5, CN 2-12 intact, normal cerebellar exam, normal gait Psych: Normal behavior, mood, and affect normal Results Laboratory and Microbiology Lab and Micro Result Laboratory Tests Test 08/04/24 21:38 08/04/24 21:47 08/04/24 22:06 White Blood Count 15.0 K/uL (4.8-10.8) H Red Blood Count 4.54 MIL/uL (4.00-5.50) Hemoglobin 13.4 g/dL (12.0-16.0) Hematocrit 39.2 % (36-48) Mean Corpuscular Volume 86.3 fL (79-99) Mean Corpuscular Hemoglobin 29.5 pg (27.0-33.0) Mean Corpuscular Hemoglobin Concent 34.2 g/dL (32.0-36.0) Red Cell Distribution Width 12.8 % (11.0-15.5) Platelet Count 280 K/uL (130-400) Mean Platelet Volume 10.8 fL (7.5-10.5) H Immature Granulocyte % (Auto) 0.3 % (0-1) Neutrophils (%) (Auto) 68.0 % (40.0-77.0) Lymphocytes (%) (Auto) 23.7 % (21.0-51.0) Monocytes (%) (Auto) 6.7 % (3.0-13.0) Eosinophils (%) (Auto) 0.9 % (0.0-8.0) Basophils (%) (Auto) 0.4 % (0.0-5.0) Neutrophils # (Auto) 10.2 K/uL (1.8-7.7) H Lymphocytes # (Auto) 3.6 K/uL (1.0-4.8) Monocytes # (Auto) 1.0 K/uL (0.1-1.0) Eosinophils # (Auto) 0.14 K/uL (0.00-0.70) Basophils # (Auto) 0.06 K/uL (0.00-0.20) Absolute Immature Granulocyte (auto 0.04 K/uL (0-1) Nucleated Red Blood Cells 0.0 % (0.0-0.19) Sodium Level 133 mmol/L (136-145) L Potassium Level 3.7 mmol/L (3.5-5.1) Chloride Level 99 mmol/L (101-111) L Carbon Dioxide Level 25 mmol/L (21-32) Blood Urea Nitrogen 12 mg/dL (7-18) Creatinine 0.8 mg/dL (0.5-1.0) Glomerular Filtration Rate Calc 95 mL/min (>90) Random Glucose 382 mg/dL (70-105) H Total Calcium 8.8 mg/dL (8.5-10.1) Troponin I High Sensitivity 4 ng/L (4-50) Influenza Type A Antigen Negative For Type A Influenza Type B Antigen Negative For Type B SARS-CoV-2 Antigen (Rapid) PRESUMPTIVE NEGATIVE Group A Streptococcus Rapid negative (NEGATIVE) Urine Color Light-Yellow (YELLOW) Urine Appearance CLEAR (CLEAR) Urine pH 6.0 (5.0-8.0) Urine Specific [place] 1.035 (1.001-1.031) Urine Protein NEGATIVE mg/dL (NEGATIVE) Urine Glucose (UA) >=1000 mg/dL (NEGATIVE) H Urine Ketones NEGATIVE mg/dL (NEGATIVE) Urine Occult Blood NEGATIVE (NEGATIVE) Urine Nitrate NEGATIVE (NEGATIVE) Urine Bilirubin NEGATIVE mg/dL (NEGATIVE) Urine Urobilinogen 0.2 mg/dL (0.2-1.0) Urine Leukocyte Esterase NEGATIVE Domi/uL Urine RBC 2-5 /HPF (0-1) H Urine WBC 2-5 /HPF (0-1) H Urine Squamous Epithelial Cells RARE /HPF (0-2) Urine Bacteria None /HPF (None Seen) Urine HCG, Qualitative NEGATIVE (NEGATIVE) Labs Reviewed?: Yes EKG/XRAY/US/CT/MRI EKG Comment Date: 08/04/2024 Time: 03/07/2044 Rate: 86 EKG interpretation: Sinus rhythm, no STEMI, normal EKG Reviewed by ED Attending CT Scan Comment REASON: R/O retropharyngeal abscess ORDERING PHYSICIAN: ANDREY WELDON PROCEDURE: NKSOFTI W - CT NECK SOFT TISS W/CONTRAST CT NECK SOFT TISS W/CONTRAST HISTORY: Retropharyngeal abscess COMPARISON: None TECHNIQUE: Multiple sequential axial images of the soft tissue neck were obtained. Patient was given 75 cc of Omnipaque through intravenous route. FINDINGS: No CT evidence of drainable abscess is seen. Visualized portion of brain parenchyma within the posterior fossa is within normal limits. Parapharyngeal fat planes are preserved bilaterally. Parotid glands and submandibular glands are grossly within normal limits. There are normal size cervical lymph nodes. The airway is patent. Visualized portion of the lung apices are unremarkable. IMPRESSION: 1. No CT evidence of drainable abscess is seen CT was performed with one or more following dose reduction techniques: automated exposure control, adjustment of the mA and kv according to patient's size, or use of a iterative reconstruction technique. DICTATED BY: IBIS OLIVAS MD DATE: 08/04/242330 MDM MDM: Differential diagnosis: Viral illness, strep, influenza, COVID Rationale: 43-year-old female who presents to the emergency department due to flu-like symptoms onset yesterday. Patient reports headache, sore throat, body aches but denies any abdominal pain, vomiting or further associated symptoms. PMHx DM, anxiety Labs obtained show leukocytosis of 15, hyponatremia 133, hypochloremia 99, glucose 382. Patient stated she was due for her insulin tonight and requested to take her home insulin. CT neck obtained negative for retropharyngeal abscess. Negative COVID, flu, strep. Negative troponin, normal EKG. UA negative for urinary tract infection. Patient received IV fluids, acetaminophen, ketorolac, Reglan in the ED. patient was educated on findings and diagnosis. Advised to follow up with PCP. Return to the emergency department if any worsening symptoms. Patient verbalized understanding. Patient stable for discharge. There are no social concerns with this patient. I independently interpreted the test that were performed, results were reviewed by me and considered findings on radiology if ordered. Medical management and examination interpretation discussions were had by me with other qualified healthcare professionals as indicated for the patient's care. ED Course Orders Procedure Category Date Status Time Cbc With Differential LAB 08/04/24 Complete 21:29 Basic Metabolic Panel LAB 08/04/24 Complete 21:29 Troponin I High LAB 08/04/24 Complete Sensitivity 21:29 12 Lead Ekg Tracing- EKG 08/04/24 Logged Technical 21:29 Chest 1vw RAD 08/04/24 Taken 21:29 Covid19 (Sars Antigen LAB 08/04/24 Complete Rapid) 21:29 Influenza Type A & B, LAB 08/04/24 Complete Rapid 21:29 Rapid (Group A Strep) LAB 08/04/24 Complete 21:29 0.9%Nacl 1000ml (Ns PHA 08/04/24 Complete 1000ml) 21:30 Urinalysis LAB 08/04/24 Complete W/Microscopic 21:29 Metoclopramide 10 PHA 08/04/24 Complete Mg/2 Ml Vial (Reglan 1 21:30 Acetaminophen 500mg PHA 08/04/24 Complete Tab (Tylenol 500mg T 21:30 ,Urine Test LAB 08/04/24 Complete 21:[address] Soft Tiss CT 08/04/24 Resulted W/Contrast 22:35 Iohexol (Omnipaque) PHA 08/04/24 Complete 23:08 Iohexol (Omnipaque) PHA 08/04/24 Complete 23:08 Ketorolac PHA 08/05/24 Complete Tromethamine 15mg/Ml 00:00 Current Medications Medications (Trade) Dose Ordered Sig/Annie Route PRN Reason Start Time Stop Time Status Last Admin Dose Admin Acetaminophen (TYLenol 500MG TAB) 1,000 mg ONCE ONCE PO 08/04/24 21:30 08/04/24 21:34 DC 08/04/24 22:14 Iohexol (Omnipaque) 75 ml STK-MED ONCE IV 08/04/24 23:08 08/04/24 23:09 DC Iohexol (Omnipaque) 35,000 mg STK-MED ONCE IV 08/04/24 23:08 08/04/24 23:08 DC Ketorolac Tromethamine (toRADol) 15 mg ONCE ONCE IV 08/05/24 00:00 08/05/24 00:01 DC 08/05/24 00:11 Metoclopramide HCl (regLAN 10MG IV) 10 mg ONCE ONCE IVP 08/04/24 21:30 08/04/24 21:34 DC 08/04/24 22:14 Sodium Chloride 1,000 ml @ 0 mls/hr ONCE ONCE IV 08/04/24 21:30 08/04/24 21:34 DC 08/04/24 22:14 Vital Signs Date Time Temp Pulse Resp B/P (MAP) Pulse Ox O2 Delivery O2 Flow Rate FiO2 08/04/24 23:36 98.6 78 18 122/76 99 Room Air* 0 21 08/04/24 22:27 80 18 133/79 98 Room Air* 0 21 08/04/24 21:17 99.1 89 20 128/84 98 Room Air DX & DISP Disposition: Discharge Departure Impression: Primary Impression: Pharyngitis Condition: Stable Scripts Amoxicillin (Amoxicillin) 500 Mg Tablet 1 TAB PO BID for 10 Days, #20 TAB 0 Refills Prov: ANDREY WELDON 08/05/24 Additional Instructions: Discharge home. Rest. Follow up with primary care in 24 hours. Return to the ER for any acute changes or worsening symptoms. If any medications were prescribed take as directed. Okay to continue home medications unless otherwise discussed during your visit in the emergency room today. Patient was also advised to follow-up with primary care physician in 1 to 2 days for continued monitoring. Referrals: SELF,REFERRAL (PCP) I performed the substantive portion of the visit. I have reviewed and person ally made and approve the management plan that is documented in the notes by myself or the JONATHAN. I acknowledge full responsibility for the patient's management plan. ANDREY WELDON Aug 05, 2024 00:02
[2024-08-05] MEDS: ketOROlac 15MG/ML VIAL (15MG/ML) IV ONE (00:11)
--- NOTE | 2024-08-05 08:52 | EKG ---
[facility] Test Date: 2024-08-04 Test Time: 21:45:42 Pat Name: WALTER RANDOLPH Department: ED Room: Gender: F Hide Spreader: [id number] : 1980 Requested By: ANDREY WELDON Order Number: [id number] Reading MD: Niecy Clemons Measurements Intervals [place] Rate: 86 P: 28 AL: 119 QRS: 40 QRSD: 94 T: 34 QT: 369 QTc: 442 Interpretive Statements Sinus rhythm Compared to ECG 07/12/2024 23:36:38 No significant changes Electronically Signed On 08-06-2024 13:20:34 CDT by Niecy Clemons Please click the below link to view image of tracing.
--- NOTE | 2024-08-05 10:35 | HMCIMG ---
CHEST 1VW HISTORY: Pain COMPARISON: 07/13/2024 FINDINGS: A frontal projection of the chest was obtained. No acute pulmonary infiltrates is seen. The heart is normal in size. Degenerative changes are seen. Prominent interstitial markings are seen. No evidence of aortic calcification is seen. IMPRESSION: 1. No acute pulmonary infiltrate is seen.
== END 2024-08-05 00:29 | disposition home or self-care (01) ==
LOC: EDH 21:14
DX: J02.9 Acute pharyngitis, unspecified (principal); E11.9 Type 2 diabetes mellitus without complications; F41.9 Anxiety disorder, unspecified; Z98.890 Other specified postprocedural states; Z79.4 Long term (current) use of insulin; Z20.822 Contact with and (suspected) exposure to COVID-19
CPT/HCPCS: 99285; 96374; 70491; 71045; 96361; 96375; 87426; 84484; 80048; 85025; 87880; 87804 ×2; 81001; 81025; 36415; 93005; J1885; J7030; J2765; Q9967

== ENCOUNTER 2024-10-02 21:58 | Emergency (ER) | payer OTHER ==
[~2024-10-02] VITALS: Ht 160 cm; Wt 94.8 kg
[~2024-10-02 21:58] MED LIST changes: +AMOX500T2 PO
--- NOTE | 2024-10-02 22:02 | NUR ---
UA CUP PROVIDED
--- NOTE | 2024-10-02 23:13 | NUR ---
UA COLLECTED AND SENT
[2024-10-02 23:25] LABS: HCG,QUALITATIVE URINE NEGATIVE (NEGATIVE)
[2024-10-02 23:28] LABS: APPEARANCE,URINE CLEAR (CLEAR); GLUCOSE, URINE (UA) >=1000 mg/dL (NEGATIVE); LEUKOCYTE ESTERASE ,URINE NEGATIVE Leu/uL (NEGATIVE); NITRATE,URINE NEGATIVE (NEGATIVE); OCCULT BLOOD,URINE NEGATIVE (NEGATIVE)
[2024-10-02 23:29] LABS: ADD UA MICROSCOPIC YES
[2024-10-02 23:30] LABS: SQUAMOUS EPITHELIAL CELL,UR RARE /HPF (0-2)
[2024-10-02 23:35] LABS: IMMATURE GRANULOCYTE ABSOLUTE 0.03 K/uL (0-1); NUCLEATED RED BLOOD CELLS 0.0 % (0.0-0.19); PLATELET COUNT (AUTO) 266 K/uL (130-400); RED BLOOD CELL COUNT(AUTO) 4.38 MIL/uL (4.00-5.50); RED CELL DISTRIBUTION WIDTH 12.6 % (11.0-15.5); WHITE BLOOD COUNT (AUTO) 10.3 K/uL (4.8-10.8)
[2024-10-02 23:51] LABS: CREATININE 0.5 mg/dL (0.5-1.0); GLOMERULAR FILTR. RATE CALC 120.0 mL/min (>90); GLUCOSE,RANDOM 247.0 mg/dL (70-105); SODIUM SERUM 135.0 mmol/L (136-145); UREA NITROGEN, BLOOD 10.0 mg/dL (7-18)
--- NOTE | 2024-10-03 00:27 | NUR ---
PATIENT CARE ASSUMED AT THIS TIME.
--- NOTE | 2024-10-03 00:52 | ERN ---
General Chief Complaint: Multiple Complaints Stated Complaint: HEADACHE, DIZZY, LEG PAIN, BACK PAIN Time Seen by MD: 22:26 Time Seen by Midlevel: 22:26 Source: patient History of Present Illness Initial Comments Patient is a 44-year-old female with a past medical history of anxiety presenting to the emergency department for evaluation of generalized body w eakness and generalized body aches. She reports getting an HPV vaccine a proximally two weeks ago and since then her symptoms has been intermittent in nature. Over the last couple of days she has been under a lot of stress in several of her family members have been diagnosed with cancer. Many of her family members had similar symptoms so she wanted to report to the ER for furthe r evaluation. Allergies: Coded Allergies: No Known Drug Allergies (Unverified Allergy, Unknown, 07/12/23) Home Meds Active Scripts Amoxicillin (Amoxicillin) 500 Mg Tablet, 1 TAB PO BID for 10 Days, #20 TAB 0 Refills Prov:ANDREY WELDON 08/05/24 Naproxen (Naproxen) 250 Mg Tablet, 500 MG PO q12 hours as needed for pain, #14 TAB 0 Refills Prov:LEN ALLRED NP 07/30/24 Insuln Asp Prt/Insulin Aspart (Novolog Mix 70-30 Vial) 100 Unit/Ml (70-30) Vial, 50 UNITS SQ DAILY, #1 VIAL 1 Refill Prov:ROSANA MELARA 11/01/23 Past Medical History Past Medical History: Anxiety, Diabetes-Type II Past Surgical History: Surgical History Other: RT FOOT Social History Social History: Lives with family Female( History) History: Not Applicable LMP: Sep 08, 2024 ROS Dictation CONSTITUTIONAL: Negative except for HPI HEAD/FACE: Negative except for HPI EENT: Negative except for HPI RESPIRATORY: Negative except for HPI GASTROINTESTINAL/ABDOMINAL: Negative except for HPI GENITOURINARY: Negative except for HPI MUSCULOSKELETAL: Negative except for HPI INTEGUMENTARY: Negative except for HPI NEUROLOGICAL/PSYCH: Negative except for HPI HEMATOLOGIC/LYMPHATIC: Negative except for HPI All Systems Negative, Except as noted above. 13 point review of systems assessed and all negative except for above. Physical Exam Physical Exam Dictation Vital Signs reviewed General Appearance: Alert, oriented x 3, no acute distress, well developed, nourished. Head and Face: non-traumatic. Eyes: PERRL, pink conjunctivas, eyelid no trauma, anterior chamber with arcus senilis. Ears: Pinnas intact and no signs of trauma or erythema ear canals clear and no discharge TM no erythema Nose: No discharge, no bleeding. Oropharynx: Mouth normal, tongue pink, pharynx clear,no erythema, tonsils no exudates, no abscesses noted, mucous membrane moist Neck: Supple, non-tender, no thyromegaly, no masses, no JVD, no bruits Breast:Deferred Chest:No tenderness, no crepitus, no paradoxical movement, no retractions Lungs:Clear, well-ventilated, symmetric, no rales, no wheezing, no rhonchi, no stridor, good breath sounds bilaterally Heart: Regular rate, regular rhythm, no murmur, no gallops Vascular: no peripheral edema, Abdomen: Soft, positive bowel sounds, nondistended, no guarding, nontender, no rebound, no masses no hepatomegaly, no splenomegaly, no Fitzgerald's sign, no hernias. Rectal: Deferred Genital: Deferred Neurological: Normal speech, motor function intact, sensory function intact Musculoskeletal: Neck nontender, full range of motion, back nontender, full range of motion, Extremities: nontender, full range of motion Skin: Color pink, dry, no turgor, no rash, no lacerations, no abrasions, no contusions. Lymphatic: Deferred Results Laboratory and Microbiology Lab and Micro Result Laboratory Tests Test 10/02/24 23:13 10/02/24 23:22 Urine Color LIGHT-YELLOW (YELLOW) Urine Appearance CLEAR (CLEAR) Urine pH 6.5 (5.0-8.0) Urine Specific [place] 1.032 (1.001-1.031) Urine Protein NEGATIVE mg/dL (NEGATIVE) Urine Glucose (UA) >=1000 mg/dL (NEGATIVE) H Urine Ketones NEGATIVE mg/dL (NEGATIVE) Urine Occult Blood NEGATIVE (NEGATIVE) Urine Nitrate NEGATIVE (NEGATIVE) Urine Bilirubin NEGATIVE mg/dL (NEGATIVE) Urine Urobilinogen 0.2 mg/dL (0.2-1.0) Urine Leukocyte Esterase NEGATIVE Domi/uL Urine RBC 2-5 /HPF (0-1) H Urine WBC 6-10 /HPF (0-1) H Urine Squamous Epithelial Cells RARE /HPF (0-2) Urine Bacteria RARE /HPF (None Seen) Urine HCG, Qualitative NEGATIVE (NEGATIVE) White Blood Count 10.3 K/uL (4.8-10.8) Red Blood Count 4.38 MIL/uL (4.00-5.50) Hemoglobin 12.9 g/dL (12.0-16.0) Hematocrit 38.3 % (36-48) Mean Corpuscular Volume 87.4 fL (79-99) Mean Corpuscular Hemoglobin 29.5 pg (27.0-33.0) Mean Corpuscular Hemoglobin Concent 33.7 g/dL (32.0-36.0) Red Cell Distribution Width 12.6 % (11.0-15.5) Platelet Count 266 K/uL (130-400) Mean Platelet Volume 10.4 fL (7.5-10.5) Immature Granulocyte % (Auto) 0.3 % (0-1) Neutrophils (%) (Auto) 49.8 % (40.0-77.0) Lymphocytes (%) (Auto) 38.9 % (21.0-51.0) Monocytes (%) (Auto) 8.7 % (3.0-13.0) Eosinophils (%) (Auto) 1.7 % (0.0-8.0) Basophils (%) (Auto) 0.6 % (0.0-5.0) Neutrophils # (Auto) 5.1 K/uL (1.8-7.7) Lymphocytes # (Auto) 4.0 K/uL (1.0-4.8) Monocytes # (Auto) 0.9 K/uL (0.1-1.0) Eosinophils # (Auto) 0.18 K/uL (0.00-0.70) Basophils # (Auto) 0.06 K/uL (0.00-0.20) Absolute Immature Granulocyte (auto 0.03 K/uL (0-1) Nucleated Red Blood Cells 0.0 % (0.0-0.19) Sodium Level 135 mmol/L (136-145) L Potassium Level 3.7 mmol/L (3.5-5.1) Chloride Level 100 mmol/L (101-111) L Carbon Dioxide Level 27 mmol/L (21-32) Blood Urea Nitrogen 10 mg/dL (7-18) Creatinine 0.5 mg/dL (0.5-1.0) Glomerular Filtration Rate Calc 120 mL/min (>90) Random Glucose 247 mg/dL (70-105) H Total Calcium 8.5 mg/dL (8.5-10.1) Total Creatine Kinase 47 U/L (21-232) # Labs Reviewed?: Yes MDM MDM: Differential diagnosis: Rhabdomyolysis, dehydration, electrolyte abnormality There are no social concerns with this patient. Prescription drug management Prescriptions will include: None Medical management and examination interpretation discussions were had by me with other qualified healthcare professionals as indicated for the patient's care. ED Course Orders Procedure Category Date Status Time ,Urine Test LAB 10/02/24 Complete 22:03 Urinalysis Profile LAB 10/02/24 Complete 22: Cbc With Differential LAB 10/02/24 Complete : Basic Metabolic Panel LAB 10/02/24 Complete : Culture Urine LATESHA 10/02/24 In Process 23:31 Creatine Kinase, Total LAB 10/03/24 Complete 00:31 Morphine 4mg Syg PHA 10/03/24 Complete (Morphine 4mg Syg) 01:00 Current Medications Medications (Trade) Dose Ordered Sig/Annie Route PRN Reason Start Time Stop Time Status Last Admin Dose Admin Morphine Sulfate (morPHINE 4MG SYG) 4 mg ONCE ONCE IM 10/03/24 01:00 10/03/24 01:01 DC 10/03/24 00:40 Vital Signs Date Time Temp Pulse Resp B/P (MAP) Pulse Ox O2 Delivery O2 Flow Rate FiO2 10/03/24 01:26 98.8 78 16 140/79 100 Room Air* 0 21 10/03/24 00:27 98.8 74 16 149/82 99 Room Air* 0 21 10/02/24 22:00 98.2 83 16 158/87 100 Room Air DX & DISP Disposition: Discharge Departure Impression: Primary Impression: Uncontrolled diabetes mellitus with hyperglycemia Additional Impression: Generalized muscle ache Condition: Stable Additional Instructions: Your blood work today shows an elevated blood sugar. The remainder of your blood work is stable. Please follow up with your primary care doctor in 2-3 days for repeat evaluation. Referrals: NONE (PCP) Time of Disposition: 01:50 I have reviewed the case, and I agree with, Diagnosis and Plan I performed the substantive portion of the visit. I have reviewed and personally made and approve the management plan that is documented in the note by myself or the JONATHAN. I acknowledge for responsibility for the patient's management plan. ERIN MARTIN Oct 03, 2024 00:52
[2024-10-03 02:23] VITALS: BP 111/62; PULSE 74; RESP 16; TEMP 98.8; O2SAT 100
== END 2024-10-03 02:42 | disposition home or self-care (01) ==
LOC: EDH 21:58
DX: E11.65 Type 2 diabetes mellitus with hyperglycemia (principal); M79.10 Myalgia, unspecified site; Z79.4 Long term (current) use of insulin; Z79.899 Other long term (current) drug therapy
CPT/HCPCS: 99283; 82550; 80048; 85025; 87086 ×3; 87186 ×2; 81001; 81025; 36415; 96372; J2270

== ENCOUNTER 2025-02-05 18:38 | Emergency (ER) | payer OTHER ==
[~2025-02-05] VITALS: Ht 160 cm; Wt 94.0 kg
[2025-02-05 18:42] VITALS: BP 129/83; PULSE 98; RESP 16; TEMP 98.1
--- NOTE | 2025-02-05 19:41 | EKG ---
[facility] Test Date: 2025-02-05 Test Time: 19:32:47 Pat Name: WALTER RANDOLPH Department: [facility] Room: Gender: F Portrait Photographer: [id number] : 1980 Requested By: VANESSA MOSS Order Number: [id number] Reading MD: Prosper Sherman Measurements Intervals [place] Rate: 98 P: 71 CA: 130 QRS: 47 QRSD: 90 T: 65 QT: 349 QTc: 446 Interpretive Statements Sinus rhythm Compared to ECG 08/04/2024 21:45:42 No significant changes Electronically Signed On 02-05-2025 21:54:44 RECYCLE DRIVER by Prosper Sherman Please click the below link to view image of tracing.
[2025-02-05 19:50] LABS: IMMATURE GRANULOCYTE ABSOLUTE 0.03 K/uL (0-1); NUCLEATED RED BLOOD CELLS 0.0 % (0.0-0.19); PLATELET COUNT (AUTO) 263 K/uL (130-400); RED BLOOD CELL COUNT(AUTO) 5.13 MIL/uL (4.00-5.50); RED CELL DISTRIBUTION WIDTH 11.9 % (11.0-15.5); WHITE BLOOD COUNT (AUTO) 9.8 K/uL (4.8-10.8)
[2025-02-05 19:54] LABS: APPEARANCE,URINE CLEAR (CLEAR); GLUCOSE, URINE (UA) >=1000 mg/dL (NEGATIVE); LEUKOCYTE ESTERASE ,URINE NEGATIVE Leu/uL (NEGATIVE); NITRATE,URINE NEGATIVE (NEGATIVE); OCCULT BLOOD,URINE NEGATIVE (NEGATIVE)
[2025-02-05 19:56] LABS: ADD UA MICROSCOPIC YES
[2025-02-05 20:02] LABS: SQUAMOUS EPITHELIAL CELL,UR RARE /HPF (0-2)
[2025-02-05 20:03] LABS: CREATININE 0.7 mg/dL (0.5-1.0); GLOMERULAR FILTR. RATE CALC 111.0 mL/min (>90); GLUCOSE,RANDOM 334.0 mg/dL (70-105); SODIUM SERUM 130.0 mmol/L (136-145); UREA NITROGEN, BLOOD 13.0 mg/dL (7-18)
[2025-02-05 20:09] LABS: ASPARTATE AMINOTRANSFERASE 19.0 U/L (10-37); CREATINE KINASE, TOTAL 30.0 U/L (21-232); TOTAL PROTEIN, SERUM 7.4 g/dL (6.0-8.3)
[2025-02-05] MEDS: 0.9%NACL 1000ML 1,000 ML IV ONE (20:45)
[2025-02-05] MEDS ORDERED: IOHEXOL-350 75 ML VIAL IV ONE (21:19)
--- NOTE | 2025-02-05 22:04 | HMCIMG ---
EXAM: CT Abdomen and Pelvis with IV contrast CLINICAL HISTORY: Patient presents with abdominal pain in the right lower quadrant. TECHNIQUE: Axial computed tomography images of the abdomen and pelvis with intravenous contrast. CONTRAST: Administered intravenously. COMPARISON: CT dated October 28, 2023. FINDINGS: LUNG BASES: The lung bases appear clear. No pleural effusions are seen. LIVER: Hepatomegaly with craniocaudal length of the right lobe measuring up to 21.2 cm. Hepatic steatosis. GALLBLADDER AND BILE DUCTS: The gallbladder appears within normal limits. No radioopaque gallstones are seen. No biliary ductal dilatation is evident. PANCREAS: Unremarkable. SPLEEN: Unremarkable. ADRENAL GLANDS: Unremarkable. KIDNEYS, URETERS, AND BLADDER: The kidneys appear within normal limits. There is no hydronephrosis or hydroureter. No urinary calculi are seen. 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 STOMACH AND BOWEL: Unremarkable appearance of the stomach and bowel. No evidence of bowel obstruction. No evidence suggesting enteritis or colitis. APPENDIX: No evidence of acute appendicitis on CT examination. PERITONEUM: No free fluid. No free air. LYMPH NODES: No lymphadenopathy is evident. REPRODUCTIVE: The uterus is mildly bulky and shows a questionable lesion in the right lateral wall measuring up to 3.5 cm, may represent an intramural fibroid; recommend ultrasound correlation. Peripherally enhancing follicles in the bilateral ovaries measuring about 1.5 cm on the right side and 1.6 cm on the left side, likely recently ruptured ovarian follicles. VASCULATURE: No evidence of abdominal aortic aneurysm. BONES: Mild multilevel degenerative changes in the spine. No aggressive appearing osseous lesion. No acute osseous pathology evident. IMPRESSION: No acute intra-abdominal or pelvic abnormality. Mild hepatomegaly and mild hepatic steatosis. 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 Uterine fibroid. Questionable recently ruptured follicles in the bilateral ovaries. Correlation with the patient's menstrual history and ultrasound of the pelvis is recommended. Compared to the prior study, there is no significant interval change. /[place]
--- NOTE | 2025-02-05 23:29 | ERN ---
ED Note History of Present Illness Stated Complaint: ABD PAIN Chief Complaint: Abdominal Pain Time Seen by MD: 19:05 Time Seen by Midlevel: 19:05 Dictation: The patient is a 44-year-old female with a history of diabetes, who presents to the emergency department with lower abdominal pain, nausea nonbloody vomiting, chills onset this morning after eating. Patient denies any fevers, denies any diarrhea. Allergies: Coded Allergies: No Known Drug Allergies (Unverified Allergy, Unknown, 07/12/23) Home Meds Active Scripts Ibuprofen (Ibuprofen) 600 Mg Tablet, 600 MG PO Q6H PRN for PAIN, #30 TAB Prov:VANESSA MOSS SECRET CODE EXPERT 02/05/25 Ondansetron (Ondansetron Odt) 4 Mg Tab.rapdis, 4 MG PO Q6HPRN PRN for nausea, #16 TAB 0 Refills Prov:VANESSA MOSS SECRET CODE EXPERT 02/05/25 Amoxicillin (Amoxicillin) 500 Mg Tablet, 1 TAB PO BID for 10 Days, #20 TAB 0 Refills Prov:ANDREY WELDON [facility] 08/05/24 Naproxen (Naproxen) 250 Mg Tablet, 500 MG PO q12 hours as needed for pain, #14 TAB 0 Refills Prov:LEN ALLRED SECRET CODE EXPERT 07/30/24 Insuln Asp Prt/Insulin Aspart (Novolog Mix 70-30 Vial) 100 Unit/Ml (70-30) Vial, 50 UNITS SQ DAILY, #1 VIAL 1 Refill Prov:ROSANA MELARA [facility] 11/01/23 Past Medical History Past Medical History: Diabetes-Type II Surgical History: Surgical History Other: RT SX Social History: Lives with family History: Not Applicable LMP: Jan 22, 2025 RN Note Reviewed/Agreed w/PFSH: Yes Review of System Dictation Constitutional: Negative for fever,chills, and weight loss Eyes: Negative for injury, pain,redness, and discharge ENT: Negative for injury,pain or swelling Cardiovascular: Negative for chest pain, palpitations, and edema Respiratory: Negative for shortness of breath, cough, and wheezing, Abdomen/GI: Negative for diarrhea, and constipation positive for right lower abdominal pain, nausea and vomiting Back: Negative for injury and pain : Negative for injury, bleeding and discharge MS/Extremity: Negative for injury and deformity Skin: Negative for rash, and discoloration Neuro: Negative for headache, weakness, numbness, tingling, and seizure Psych: Negative for suicide ideation, homicidal ideation, and hallucinations Initial Vital Sign VS Vital Signs Date Time Temp Pulse Resp B/P (MAP) Pulse Ox O2 Delivery O2 Flow Rate FiO2 02/05/25 18:42 98.1 98 16 129/83 97 Room Air 0 Physical Exam Dictation Vital Signs reviewed General Appearance: Alert, oriented x 3, no acute distress, well developed, nourished. Head and Face: non-traumatic. Eyes: PERRL, pink conjunctivas, eyelid no trauma, anterior chamber with arcus senilis. Ears: Pinnas intact and no signs of trauma or erythema ear canals clear and no discharge TM no erythema Nose: No discharge, no bleeding. Oropharynx: Mouth normal, tongue pink. pharynx clear,no erythema, tonsils no exudates, no abscesses noted, mucous membrane moist Neck: Supple, non-tender, no thyromegaly, no masses, no JVD, no bruits Breast:Deferred Chest:No tenderness, no crepitus, no paradoxical movement, no retractions Lungs:Clear, well-ventilated, symmetric, no rales, no wheezing, no rhonchi, no stridor, good breath sounds bilaterally Heart: Regular rate, regular rhythm, no murmur, no gallops Vascular: no peripheral edema, Abdomen: Soft, positive bowel sounds, nondistended, no guarding, Right lower quadrant tenderness, no rebound, no masses no hepatomegaly, no splenomegaly, no Fitzgerald's sign, no hernias. Rectal: Deferred Genital: Deferred Neurological: Normal speech, motor function intact, sensory function intact Musculoskeletal: Neck nontender, full range of motion, back nontender, full range of motion, Extremities: nontender, full range of motion Skin: Color pink, dry, no turgor, no rash, no lacerations, no abrasions, no contusions. Lymphatic: Deferred Results (Laboratory/Radiology) Laboratory/Radiology Laboratory Tests Test 02/05/25 19:37 White Blood Count 9.8 K/uL (4.8-10.8) Red Blood Count 5.13 MIL/uL (4.00-5.50) Hemoglobin 15.0 g/dL (12.0-16.0) Hematocrit 43.9 % (36-48) Mean Corpuscular Volume 85.6 fL (79-99) Mean Corpuscular Hemoglobin 29.2 pg (27.0-33.0) Mean Corpuscular Hemoglobin Concent 34.2 g/dL (32.0-36.0) Red Cell Distribution Width 11.9 % (11.0-15.5) Platelet Count 263 K/uL (130-400) Mean Platelet Volume 10.9 fL (7.5-10.5) H Immature Granulocyte % (Auto) 0.3 % (0-1) Neutrophils (%) (Auto) 75.2 % (40.0-77.0) Lymphocytes (%) (Auto) 16.9 % (21.0-51.0) L Monocytes (%) (Auto) 6.4 % (3.0-13.0) Eosinophils (%) (Auto) 0.8 % (0.0-8.0) Basophils (%) (Auto) 0.4 % (0.0-5.0) Neutrophils # (Auto) 7.4 K/uL (1.8-7.7) Lymphocytes # (Auto) 1.7 K/uL (1.0-4.8) Monocytes # (Auto) 0.6 K/uL (0.1-1.0) Eosinophils # (Auto) 0.08 K/uL (0.00-0.70) Basophils # (Auto) 0.04 K/uL (0.00-0.20) Absolute Immature Granulocyte (auto 0.03 K/uL (0-1) Nucleated Red Blood Cells 0.0 % (0.0-0.19) Urine Color LIGHT-YELLOW (YELLOW) Urine Appearance CLEAR (CLEAR) Urine pH 5.5 (5.0-8.0) Urine Specific Dema 1.040 (1.001-1.031) Urine Protein NEGATIVE mg/dL (NEGATIVE) Urine Glucose (UA) >=1000 mg/dL (NEGATIVE) H Urine Ketones NEGATIVE mg/dL (NEGATIVE) Urine Occult Blood NEGATIVE (NEGATIVE) Urine Nitrate NEGATIVE (NEGATIVE) Urine Bilirubin NEGATIVE mg/dL (NEGATIVE) Urine Urobilinogen 0.2 mg/dL (0.2-1.0) Urine Leukocyte Esterase NEGATIVE Domi/uL Urine RBC None /HPF (0-1) Urine WBC 0-1 /HPF (0-1) Urine Squamous Epithelial Cells RARE /HPF (0-2) Urine Bacteria None /HPF (None Seen) Sodium Level 130 mmol/L (136-145) L Potassium Level 3.7 mmol/L (3.5-5.1) Chloride Level 99 mmol/L (101-111) L Carbon Dioxide Level 23 mmol/L (21-32) Blood Urea Nitrogen 13 mg/dL (7-18) Creatinine 0.7 mg/dL (0.5-1.0) Glomerular Filtration Rate Calc 111 mL/min (>90) Random Glucose 334 mg/dL (70-105) H Total Calcium 8.7 mg/dL (8.5-10.1) Total Bilirubin 0.5 mg/dL (0.2-1.0) Direct Bilirubin 0.1 mg/dL (0.0-0.3) Aspartate Amino Transf (AST/SGOT) 19 U/L (10-37) Alanine Aminotransferase (ALT/SGPT) 39 U/L (12-78) Alkaline Phosphatase 110 U/L (50-136) Total Creatine Kinase 30 U/L (21-232) # Troponin I High Sensitivity < 4 ng/L (4-50) L Total Protein 7.4 g/dL (6.0-8.3) Albumin 3.3 g/dL (3.5-5.0) L Lipase 24 U/L (16-77) Serum Test, Qualitative NEGATIVE (NEGATIVE) REASON: Abdominal Pain,rlq ORDERING PHYSICIAN: VANESSA MOSS SECRET CODE EXPERT PROCEDURE: ABD PEL W - CT ABDOMEN/PELVIS W/CONTRAST EXAM: CT Abdomen and Pelvis with IV contrast CLINICAL HISTORY: Patient presents with abdominal pain in the right lower quadrant. TECHNIQUE: Axial computed tomography images of the abdomen and pelvis with intravenous contrast. CONTRAST: Administered intravenously. COMPARISON: CT dated October 28, 2023. FINDINGS: LUNG BASES: The lung bases appear clear. No pleural effusions are seen. LIVER: Hepatomegaly with craniocaudal length of the right lobe measuring up to 21.2 cm. Hepatic steatosis. GALLBLADDER AND BILE DUCTS: The gallbladder appears within normal limits. No radioopaque gallstones are seen. No biliary ductal dilatation is evident. PANCREAS: Unremarkable. SPLEEN: Unremarkable. ADRENAL GLANDS: Unremarkable. KIDNEYS, URETERS, AND BLADDER: The kidneys appear within normal limits. There is no hydronephrosis or hydroureter. No urinary calculi are seen. 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 STOMACH AND BOWEL: Unremarkable appearance of the stomach and bowel. No evidence of bowel obstruction. No evidence suggesting enteritis or colitis. APPENDIX: No evidence of acute appendicitis on CT examination. PERITONEUM: No free fluid. No free air. LYMPH NODES: No lymphadenopathy is evident. REPRODUCTIVE: The uterus is mildly bulky and shows a questionable lesion in the right lateral wall measuring up to 3.5 cm, may represent an intramural fibroid; recommend ultrasound correlation. Peripherally enhancing follicles in the bilateral ovaries measuring about 1.5 cm on the right side and 1.6 cm on the left side, likely recently ruptured ovarian follicles. VASCULATURE: No evidence of abdominal aortic aneurysm. BONES: Mild multilevel degenerative changes in the spine. No aggressive appearing osseous lesion. No acute osseous pathology evident. IMPRESSION: No acute intra-abdominal or pelvic abnormality. Mild hepatomegaly and mild hepatic steatosis. 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 Uterine fibroid. Questionable recently ruptured follicles in the bilateral ovaries. Correlation with the patient's menstrual history and ultrasound of the pelvis is recommended. Compared to the prior study, there is no significant interval change. /[place] REASON: abd pain ORDERING PHYSICIAN: VANESSA MOSS PROCEDURE: PELVCOMP - US PELVIC NON-OB COMP EXAM: US Pelvis, Complete. CLINICAL HISTORY: Abdominal pain. TECHNIQUE: Transabdominal pelvic ultrasound with image documentation. COMPARISON: None provided. FINDINGS: ENDOMETRIUM: Normal thickness: 9.7mm UTERUS/CERVIX: The uterus measures 8.7 x 4.8 x 6.0 cm. A fibroid measuring 3.5 x 3.4 x 3.5 cm in the lower uterine body towards the right side, which is intramural to subserosal in location. RIGHT OVARY: The right ovary is not visualized and obscured by the bowel gases. LEFT OVARY: The left ovary measures 2.9 x 2.4 x 2.5 cm. Normal color Doppler flow in the left ovary. Multiple follicles in the left ovary, the largest measuring up to 10 x 12 mm. FREE FLUID: No free fluid. IMPRESSION: Uterine fibroid. The right ovary is not visualized. Multiple follicles in the left ovary. No ovarian torsion on the left side. Electronically signed by: KAYKAY Labs Reviewed?: Yes EKG: (+) rhythm (Sinus rhythm) EKG Comment: Date:02/05/2025 Time:1931 Ventricular rate:98 NH interval:130 QRS duration:90 QT/QTc:349/446 EKG interpretation: Sinus rhythm Reviewed by ED Attending no STEMI ED Course ED Course Orders Procedure Category Date Status Time Cbc With Differential LAB 02/05/25 Complete 19:09 Troponin I High LAB 02/05/25 Complete Sensitivity 19:09 Urinalysis Profile LAB 02/05/25 Complete 19:09 12 Lead Ekg Tracing- EKG 02/05/25 Resulted Technical 19:09 0.9%Nacl 1000ml (Ns PHA 02/05/25 Complete 1000ml) 19:30 Morphine 4mg Syg PHA 02/05/25 Complete (Morphine 4mg Syg) 19:30 Ondansetron 4mg Inj PHA 02/05/25 Complete (Zofran 4mg Inj) 19:30 Creatine Kinase, Total LAB 02/05/25 Complete 19:09 Lipase LAB 02/05/25 Complete 19:09 Basic Metabolic Panel LAB 02/05/25 Complete 19:09 Hepatic Function Panel LAB 02/05/25 Complete 19:09 Testing, LAB 02/05/25 Complete Serum Hcg 19:09 Pantoprazole 40mg Inj PHA 02/05/25 Complete (Protonix 40mg Inj 19:30 Ct Abdomen/Pelvis CT 02/05/25 Resulted W/Contrast 20:26 Iohexol (Omnipaque) PHA 02/05/25 Complete 21:19 Us Pelvic Non-Ob Comp US 02/05/25 Resulted 22:08 Current Medications Medications (Trade) Dose Ordered Sig/Annie Route PRN Reason Start Time Stop Time Status Last Admin Dose Admin Iohexol (Omnipaque) 75 ml STK-MED ONCE IV 02/05/25 21:19 02/05/25 21:19 DC Morphine Sulfate (morPHINE 4MG SYG) 4 mg ONCE ONCE IVP 02/05/25 19:30 02/05/25 19:31 DC 02/05/25 20:45 Ondansetron HCl (zoFRAN 4MG INJ) 4 mg ONCE ONCE IVP 02/05/25 19:30 02/05/25 19:31 DC 02/05/25 20:45 Pantoprazole Sodium (PROTonix 40MG INJ) 40 mg ONCE ONCE IVP 02/05/25 19:30 02/05/25 19:31 DC 02/05/25 20:45 Sodium Chloride 1,000 ml @ 0 mls/hr ONCE ONCE IV 02/05/25 19:30 02/05/25 19:31 DC 02/05/25 20:45 Vital Signs Date Time Temp Pulse Resp B/P (MAP) Pulse Ox O2 Delivery O2 Flow Rate FiO2 02/05/25 18:42 98.1 98 16 129/83 97 Room Air 0 Medical Decision Making MDM The patient is a 44-year-old female with a history of diabetes, who presents to the emergency department with lower abdominal pain, nausea nonbloody vomiting, chills onset this morning after eating. Patient denies any fevers, denies any diarrhea. CBC showed no leukocytosis, no anemia, chemistry showed mild hyperglycemia, negative troponin, negative liver enzymes, urinalysis was unremarkable. CT scan showed right calcified renal artery aneurysm uterine fibroid and multiple oblique views of the ovaries. After medication administration patient reports feeling better. Labs and imaging discussed with the patient who agrees to be discharged and follow up with primary doctor. Patient otherwise in no acute distress, nontoxic appearance. Differential diagnosis: Appendicitis, gastroenteritis, dehydration, electrolyte imbalance Need for hospitalization: Patient does not meet criteria for hospitalization. There are no social concerns with this patient. DX & DISP Disposition: Discharge Departure Impression: Primary Impression: Abdominal pain Additional Impressions: Uncontrolled diabetes mellitus with hyperglycemia, Uterine fibroid Condition: Stable Scripts Ibuprofen (Ibuprofen) 600 Mg Tablet 600 MG PO Q6H PRN for PAIN, #30 TAB Prov: VANESSA MOSS SECRET CODE EXPERT 02/05/25 Ondansetron (Ondansetron Odt) 4 Mg Tab.rapdis 4 MG PO Q6HPRN PRN for nausea, #16 TAB 0 Refills Prov: VANESSA MOSS SECRET CODE EXPERT 02/05/25 Additional Instructions: Your labs were unremarkable except your blood sugar was slightly elevated. Your CT scan showed uterine fibroids follow up with the OBGYN., and a right calcified renal artery aneurysm that we will need to be monitored by your PCP Please take your medications as prescribed. Please follow up with your primary doctor in 1- 2 days. If anything worsens please return to ER. FOLLOW-UP WITH PRIMARY CARE PROVIDER IN 1 TO 2 DAYS. TAKE MEDICATIONS DIRECTED HERE IN THE EMERGENCY ROOM. OKAY TO CONTINUE HOME MEDICATIONS UNLESS OTHERWISE DISCUSSED DURING YOUR VISIT IN THE EMERGENCY ROOM TODAY. RETURN TO YOUR NEAREST EMERGENCY ROOM IF SYMPTOMS WORSEN OR IF THERE IS NO IMPROVEMENT. CALL 911 IF YOU NEED IMMEDIATE ASSISTANCE. TAKE TYLENOL [id number] N EEDED AND IF NO CONTRAINDICATIONS ARE PRESENT. INCREASE ORAL HYDRATION. A WOUND CULTURE OR URINE CULTURE WAS ORDERED HERE IN THE EMERGENCY ROOM DEPARTMENT PLEASE FOLLOW-UP WITH PRIMARY CARE PROVIDER AND ADVISE THEM TO GET REPEAT PORTS FROM OUR FACILITY. IF YOU HAD ANY ALCIRA WRAP/SPLINTS THAT WERE APPLIED HERE, PLEASE DO NOT REMOVE THEM UNTIL YOU SEE YOUR PRIMARY CARE OR SPECIALTY. Referrals: NONE (PCP) Time of Disposition: 23:48 I have reviewed the case, and I agree with, Diagnosis and Plan VANESSA MOSS [facility] Feb 05, 2025 23:29
[2025-02-05] MEDS ORDERED: IBUP-1492 PO (23:51)
[2025-02-05] MEDS ORDERED: ONDA-243 PO (23:51)
--- NOTE | 2025-02-06 00:05 | HMCIMG ---
EXAM: US Pelvis, Complete. CLINICAL HISTORY: Abdominal pain. TECHNIQUE: Transabdominal pelvic ultrasound with image documentation. COMPARISON: None provided. FINDINGS: ENDOMETRIUM: Normal thickness: 9.7mm UTERUS/CERVIX: The uterus measures 8.7 x 4.8 x 6.0 cm. A fibroid measuring 3.5 x 3.4 x 3.5 cm in the lower uterine body towards the right side, which is intramural to subserosal in location. RIGHT OVARY: The right ovary is not visualized and obscured by the bowel gases. LEFT OVARY: The left ovary measures 2.9 x 2.4 x 2.5 cm. Normal color Doppler flow in the left ovary. Multiple follicles in the left ovary, the largest measuring up to 10 x 12 mm. FREE FLUID: No free fluid. IMPRESSION: Uterine fibroid. The right ovary is not visualized. Multiple follicles in the left ovary. No ovarian torsion on the left side. /[place]
== END 2025-02-06 | disposition home or self-care (01) ==
LOC: EDH 18:38
DX: R10.30 Lower abdominal pain, unspecified (principal); D25.9 Leiomyoma of uterus, unspecified; E11.65 Type 2 diabetes mellitus with hyperglycemia; R11.2 Nausea with vomiting, unspecified; Z79.4 Long term (current) use of insulin; Z98.890 Other specified postprocedural states
CPT/HCPCS: 99285; 74177; 96374; 76856; 96375; 82550; 80076; 84484; 80048; 84703; 83690; 85025; 81001; 36415; 93005; J7030; J2405; J2270; J2470; Q9967